=== PATIENT | male | born 1960 | race Caucasian/White ===

== ENCOUNTER 2020-10-21 14:00 | Outpatient (RCR) | payer BC, SELFPAY ==
--- NOTE | 2020-09-16 09:54 | PTOPEVAL ---
Thank you for referring Shreyas Dey to [facility].? The patient is scheduled to be seen for therapy? 1x/week for 6-12 weeks. Please review, sign, date and return this plan of care [place]. I agree with and certify that the following plan of care is medically necessary. Referring Physician Date Attending Provider: Aidee Liu *PT Outpatient Evaluation Start: 09/15/20 13:30 Freq: 1x/week Status: Active Protocol: Document 09/15/20 14:30 [facility] (Rec: 09/16/20 09:53 [facility] [email or web address]) Therapy Assessment Status Assessment Status Assessment Status Evaluation Outpatient Past Medical History Past Medical History Source of Past Medical History Patient Neurological History Hx Other Neurological Disorders Yes: Neuropathy of hands and feet Evaluation Information Problem Diagnosis Pelvic pain, specifically scrotal pain w/dx of epididymitis Onset 4-6 months ago per patient; however ANP note indicates much longer (2016) Cause reports he had a UTI 4-6 monts ago Additional Evaluation Detail Provider reports that he has been diagnosed with gluten intolerance and has GI discomfort. He has neuropathy from unknown etiology (not diabetic) Subjective Information Pt reports that he had the UTI Query Text:As Reported By Patient/ 4-6 months ago and that is Family when the pain started. The pain has just not gone away and is constant. It does not prevent him from sleeping. Diagnostic Tests X-Rays For This Problem No MRI For This Problem No Other Tests For This Problem Yes: No current UTI Previous Treatments Previous Treatments For This Problem Medication Prior Level of Function Activity Level (Last 3 Months) Occupation Word Processor Operator at [employer] Medications Home Meds (Include: OTC, RX, Vitamins, Per Provider notes, patient Herbals, Dose, Route,and Frequency) takes Flomax; revisit Query Text:Home Med Entries Will No medications next session Longer Recall From Past Visits. Home Meds Must Be Re-entered With Each Visit. Home Setting Home Type House Living Situation With Spouse Mobility Assistive Devices (Used Last 3 None Months) Comments Additional Prior Level of Function Pt takes care of large yard on Comments riding mower. Denies having
--- NOTE | 2020-11-24 08:34 | PCPTNOTE ---
Attending Provider: Aidee Liu Patient:Shreyas Dey Date of :1960 Patient has not needed to return for any further treatments since 10/21/2020, therefore he will be discharged at this time. Patient?s initial visit was on 09/15/2020 13:30 and he had a total of 5 visits. The goals have been met with decreased pain, tolerance to home program, and education goals met. Thank you for referring this patient to [facility]. Please review, sign, date and return this discharge summary [place]. I have been updated about the patient's current status and I agree with discharge from the above service at this time. Referring Physician Date
== END 2020-11-27 14:37 | disposition home or self-care (01) ==
LOC: ANHPT 14:00
PROVIDERS: PCP Internal Medicine
DX: M75.41 Impingement syndrome of right shoulder (principal)
CPT/HCPCS: 97110; 97140; 97161